=== PATIENT | female | born 1980 | race African-American/Black ===

== ENCOUNTER → 2017-10-15 | Outpatient (CLI) | payer OTHER ==
[~2017-10-15] MED LIST: MACROBID 100 M100 M1 PO; TRINATE TABLET1 TAB
== END ==
LOC: RAD 09:10
DX: Z12.31 Encounter for screening mammogram for malignant neoplasm of breast (principal)

== ENCOUNTER → 2021-10-05 | Outpatient (CLI) | payer BC | LOC: BC 10:23 | PROVIDERS: ATTEND Family Medicine | DX: Z12.31 Encounter for screening mammogram for malignant neoplasm of breast (principal); N63.20 Unspecified lump in the left breast, unspecified quadrant ==